=== PATIENT | female | born 1950 | race Caucasian/White ===

== ENCOUNTER 2017-11-26 08:46 | Emergency (ER) | payer MEDICARE ==
[~2017-11-26] VITALS: Ht 167.6 cm; Wt 96.8 kg
[~2017-11-26 08:46] MED LIST: CYMBALTA60 MG PO; GLUCOPHAGE500 MG PO; LISINOPRIL10 MG PO; NOVOLIN N100 U/ML
[2017-11-26 08:53] VITALS: Ht 167.6 cm; Wt 96.8 kg
[2017-11-26] MEDS ORDERED: PROTONIX40 MG PO (08:54)
[2017-11-26 09:13] LABS: BASOPHILS 0.3 % (0-2); EOSINOPHILS 2.3 % (0-7); HEMATOCRIT 42.5 % (36.0-48.0); HEMOGLOBIN 14.1 g/dL (12-16); IMMATURE GRANULOCYTES 0.2 % (0-5); LYMPHOCYTES 24.6 % (15-50); MCH 25.5 pg (26.0-34.0); MCHC 33.2 g/dL (31.0-37.0); MCV 76.9 fL (80.0-100.0); MEAN PLATELET VOLUME 10.9 fL (7.4-10.4); MONOCYTES 5.7 % (2-11); NEUTROPHILS 66.9 % (40-80); RBC 5.53 10x6/uL (4.00-5.40); RDW 14.2 % (11.5-14.5); WBC 12.6 10x3/uL (4.8-10.8)
[2017-11-26 09:14] LABS: PLATELET COUNT 306 10x3/uL (130-400)
[2017-11-26 09:17] LABS: COLOR YELLOW (YELLOW); GLUCOSE NEGATIVE (NEGATIVE); KETONE NEGATIVE (NEGATIVE); NITRITE NEGATIVE (NEGATIVE); PROTEIN NEGATIVE (NEGATIVE); UROBILINOGEN NORMAL (NORMAL)
[2017-11-26 09:18] LABS: APPEARANCE CLOUDY (CLEAR); BILIRUBIN NEGATIVE (NEGATIVE)
[2017-11-26 09:20] LABS: BACTERIA MODERATE /hpf (NONE SEEN); MUCUS <1+ /lpf (NONE SEEN); RED CELLS - URINE 0-5 /hpf (0-5); WHITE CELLS - URINE 25-50 /hpf (0-5)
[2017-11-26 09:34] LABS: ALBUMIN 3.4 g/dL (3.4-5.0); ANION GAP 16.8 mmol/L (8-16); BILIRUBIN - TOTAL 0.33 mg/dL (0.2-1.3); CALCIUM 9.3 mg/dL (8.5-10.1); CARBON DIOXIDE 25.3 mmol/L (21.0-32.0); POTASSIUM - SERUM 4.1 mmol/L (3.5-5.1)
[2017-11-26 10:43] LABS: AMYLASE - SERUM 31 U/L (25-115); LIPASE 129 U/L (73-393)
[2017-11-26] MEDS ORDERED: MACROBID100 MG PO (12:59)
[2017-11-26] MEDS ORDERED: ZOFRAN ODT4 MG/UDTAB PO (12:59)
[2017-11-26] MEDS ORDERED: ULTRAM50 MG PO (12:59)
[2017-11-26 13:55] VITALS: BP 119/67
== END 2017-11-26 13:55 | disposition home or self-care (01) ==
LOC: D.ER 08:46
PROVIDERS: Family Medicine
DX: N12 Tubulo-interstitial nephritis, not specified as acute or chronic (principal); E11.9 Type 2 diabetes mellitus without complications; I10 Essential (primary) hypertension

== ENCOUNTER 2018-01-31 05:45 | Day surgery (SDC) | payer MEDICARE, OTHER ==
[2018-01-30 13:52] LABS: HEMATOCRIT 38.8 % (36.0-48.0); HEMOGLOBIN 12.8 g/dL (12-16); MCH 25.4 pg (26.0-34.0); MEAN PLATELET VOLUME 11.3 fL (7.4-10.4); RBC 5.04 10x6/uL (4.00-5.40); RDW 14.8 % (11.5-14.5); WBC 10.8 10x3/uL (4.8-10.8)
[2018-01-30 14:09] LABS: ANION GAP 13.4 mmol/L (8-16); CALCIUM 8.8 mg/dL (8.5-10.1); CARBON DIOXIDE 25.9 mmol/L (21.0-32.0); CREATININE - SERUM 0.9 mg/dL (0.6-1.3); POTASSIUM - SERUM 4.3 mmol/L (3.5-5.1)
[~2018-01-31] VITALS: Ht 167.6 cm; Wt 97.5 kg
--- NOTE | ~2018-01-31 | OP ---
PATIENT NAME: CONSTANZA CARRINGTON MEDICAL RECORD: [id number] :52 LOCATION:D.OPS ADMISSION DATE: SURGEON: DASHAWN DARBY MD DATE OF OPERATION: 01/31/2018 PREOPERATIVE DIAGNOSES: 1. Gallstones. 2. Hypertension. 3. Diabetes mellitus. 4. Fibromyalgia. POSTOPERATIVE DIAGNOSES: 1. Gallstones. 2. Hypertension. 3. Diabetes mellitus. 4. Fibromyalgia. PROCEDURE: Laparoscopic cholecystectomy. SURGEON: Dashawn Darby MD REPORT OF PROCEDURE: The patient's abdomen was prepped and draped in sterile fashion. A cutdown was made on the superior aspect of the umbilicus, 0 Vicryls were placed in the fascia bilaterally and the fascia was incised with 15-blade. I then bluntly entered the peritoneal cavity and placed a 12-mm Leela port. The gallbladder was grasped and elevated. The patient had some inflammatory changes present and these were all teased down carefully with blunt dissection. The cystic artery and cystic duct were dissected free and these were clipped proximally and distally and ligated in standard fashion. The gallbladder was then taken off the liver bed using electrocautery and placed in the right upper quadrant. Any bleeding from the liver bed was then treated with electrocautery. We irrigated out the right upper quadrant and assured there was no sign of any bleeding or bile leakage. At this point, the ports and insufflation were then removed and the gallbladder was taken out through the umbilicus. The umbilical fascia was closed with interrupted 0 Vicryls times 3. The wounds were then irrigated out with normal saline and infused with 10 mL of 0.25% Marcaine with epinephrine. The skin incisions were all closed with subcutaneous 5-0 Monocryl and dressed appropriately. COMPLICATIONS: None. CONDITION: Stable. ANESTHESIA: General endotracheal and local. BLOOD LOSS: Minimal. TRANSINT:[id number] Voice Confirmation ID: [id number] DOCUMENT ID: [id number] CC: Sonia Vaca (not faxed, retired) OPERATIVE REPORT [id number] CONSTANZA CARRINGTON DASHAWN DARBY MD at 1714 CC: [id number] DICTATION DATE: 01/31/18920 [employer] ACQUISITION: 01/31/18926 [facility] 01/31/18 [place] [id number] [facility] [place] [address]
[~2018-01-31 05:45] MED LIST changes: +MACROBID100 MG PO; +NOVOLIN 70/30 110 ML; -NOVOLIN N100 U/ML; +PROTONIX40 MG PO; +ULTRAM50 MG PO; +ZOFRAN ODT4 MG/UDTAB PO
[2018-01-31 06:36] VITALS: BP 138/64; Ht 167.6 cm; Wt 97.5 kg
[2018-01-31] MEDS ORDERED: NORCO 10-325 TA1 TAB PO (09:17)
== END 2018-01-31 11:42 | disposition home or self-care (01) ==
LOC: D.OPS 05:45
PROVIDERS: Anesthesiology
DX: K80.00 Calculus of gallbladder with acute cholecystitis without obstruction (principal); Z01.812 Encounter for preprocedural laboratory examination

== ENCOUNTER 2019-10-12 19:00 | Outpatient (CLI) | payer MEDICARE ==
[2018-01-31 06:36] VITALS: BMI 34.7
[~2019-10-12 19:00] MED LIST changes: +NORCO 10-325 TA1 TAB PO
== END 2019-10-12 23:59 | disposition home or self-care (01) ==
LOC: D.MAMMO 19:00
PROVIDERS: ATTEND Nurse Practitioner
DX: Z12.31 Encounter for screening mammogram for malignant neoplasm of breast (principal)